=== PATIENT | male | born 1990 ===

== ENCOUNTER 2019-07-21 07:11 | Day surgery (SDC) | payer OTHER ==
[2019-07-21] VITALS (13 sets, daily range): BP systolic 114–170; BP diastolic 74–103
[~2019-07-21] VITALS: Ht 172.7 cm; Wt 90.7 kg
--- NOTE | 2019-07-21 07:05 | Pre-Procedure Note/Attestation ---
Pre-Procedure Note/Attestation Complete Prior to Procedure Planned Procedure: right Procedure Narrative: rt knee scope, acl reconstruction, lateral meniscectomy Indications for Procedure Pre-Operative Diagnosis: rt knee acl tear lateral meniscus tear Attestation I attest that I discussed the nature of the procedure; its benefits; risks and complications; and alternatives (and the risks and benefits of such alternatives ), prior to the procedure, with the patient (or the patient's legal associate financial representative). I attest that, if there was a reasonable possibility of needing a blood transfusion, the patient (or the patient's legal associate financial representative) was given the [facility] standardized written summary, pursuant to the Parvez [place] Blood Safety Act ([place] Health and Safety Code # 1645, as amended). I attest that I re-evaluated the patient just prior to the surgery and that there has been no change in the patient's H&P, except as documented below: none Alexis Ohara MD Jul 21, 2019 07:05
[~2019-07-21 07:11] MED LIST: ceFAZolin 1gm IVPB IVPB ONE; celeBREX 200mg Cap **SURGERY PATIENTS ONLY ORAL ONE; oxyCONTIN 20mg tab ORAL ONE
[2019-07-21] MEDS ORDERED: LR 1000ml 1,000 ML IVLG SCH (07:27)
--- NOTE | 2019-07-21 07:27 | Anethesia Preoperative Eval ---
Anesthesia Pre-op PMH/ROS General Date of Evaluation: Jul 21, 2019 Anesthesiologist: Naresh ASA Score: ASA 1 Mallampati Score Class I : Soft palate, uvula, fauces, pillars visible Class II: Soft palate, uvula, fauces visible Class III: Soft palate, base of uvula visible Class IV: Only hard plate visible Mallampati Classification: Class I Surgeon: Shaq Diagnosis: right acl tear Surgical Procedure: right knee arthroscopy with acl repair Anesthesia History: none Family History: no anesthesia problems Allergies: Coded Allergies: No Known Allergies (Unverified , 07/20/19) Medications: see eMAR Patient NPO?: Yes NPO Date: Jul 20, 2019 NPO Time: 22:00 Past Medical History Cardiovascular: Denies: HTN, CAD, DE, valve dz, arrhythmia, other Pulmonary: Denies: asthma, COPD, GRAYSON, other Gastrointestinal/Genitourinary: Denies: GERD, CRI, ESRD, other Neurologic/Psychiatric: Denies: dementia, CVA, depression/anxiety, TIA, other Endocrine: Denies: DM, hypothyroidism, steroids, other HEENT: Denies: cataract (L), cataract (R), glaucoma, QUINAULT (L), QUINAULT (R), other Hematology/Immune: Denies: anemia, DVT, bleeding disorder, other Musculoskeletal/Integumentary: Denies: OA, RA, DJD, DDD, edema, other PSxH Narrative: denies Anesthesia Pre-op Phys. Exam Physician Exam see chart Constitutional: NAD Cardiovascular: RRR Respiratory: CTA Airway Exam Mallampati Score: Class I MO: full ROM: full Teeth: intact Anesthesia Pre-op A/P Labs see chart Risk Assessment & Plan Assessment: ASA I Plan: GA with adductor nerve block Status Change Before Surgery: No Pre-Antibiotics Drug: Ancef 1g Given Within 1 Hr of Incision: Yes Lashae Navas MD Jul 21, 2019 07:27
[2019-07-21] MEDS ORDERED: EPINEPHrine 1mg/1ml Amp ONE (07:28)
[2019-07-21] MEDS ORDERED: Lidocaine 1% 10mg/ml/Epi 0.005mg/ml 30ml vial INJ ONE (07:29)
[2019-07-21] MEDS ORDERED: Bupivacaine w/Epi 0.5% 30ml Vial INJ ONE (07:29)
[2019-07-21] MEDS ORDERED: Bacitracin 50000 Units Vial ONE (07:30)
[2019-07-21] MEDS ORDERED: fentaNYL 100 mcg/2 mL IV PRN (07:30)
[2019-07-21] MEDS ORDERED: Midazolam 2mg/2ml Inj IVP PRN (07:30)
[2019-07-21] MEDS ORDERED: Ketorolac 30mg Inj IV PRN (07:30)
[2019-07-21] MEDS ORDERED: DiphenhydrAMINE 50mg/ml Inj IVP PRN (07:30)
[2019-07-21] MEDS ORDERED: Metoclopramide 10mg/2ml Inj IVP PRN (07:30)
[2019-07-21] MEDS ORDERED: LORazepam Inj 2mg/ml 1ml IV PRN (07:30)
[2019-07-21] MEDS ORDERED: oxyCONTIN 20mg tab ORAL ONE (07:52)
[2019-07-21] MEDS ORDERED: celeBREX 200mg Cap **SURGERY PATIENTS ONLY ORAL ONE (07:52)
[2019-07-21] MEDS ORDERED: fentaNYL 100 mcg/2 mL IV ONE (08:12)
[2019-07-21] MEDS ORDERED: Lidocaine 1% MPF 10mg/ml 5ml ONE (08:12)
[2019-07-21] MEDS ORDERED: Midazolam 2mg/2ml Inj ONE (08:12)
[2019-07-21] MEDS ORDERED: Propofol 200mg/20ml IV ONE (08:12)
[2019-07-21] MEDS ORDERED: NS Irrig 1000ml ONE (08:30)
[2019-07-21] MEDS ORDERED: Sterile Water Irrig 1000ml IRRIG ONE (08:30)
[2019-07-21] MEDS ORDERED: LR 1000ml ONE (08:30)
[2019-07-21] MEDS ORDERED: Dexamethasone 4mg/ml vial ONE (08:49)
[2019-07-21] MEDS ORDERED: Ketorolac 30mg Inj ONE (08:50)
[2019-07-21] MEDS ORDERED: NS Irrig 4000ml IRRIG ONE (09:27)
--- NOTE | 2019-07-21 10:14 | Brief Operative Note ---
Immediate Post Operative Note Operative Note Chief Complaint: rt knee pain Pre-op Diagnosis: rt knee acl tear Procedure: rt knee scope, acl reconstruction Post-op Diagnosis: same as pre-op Findings: consistent w/pre-op dx studies Surgeon: md mindy Classified Advertising Clerk: bruno medrano Anesthesiologist: md joon Anesthesia: general Specimen: none Complications: none Condition: stable Fluids: ns Estimated Blood Loss: minimal Drains: none Implant(s) used?: Yes - biomet Jemima Medrano Jul 21, 2019 10:14
[2019-07-21] MEDS ORDERED: HYDROmorphone 1mg/ml Carpuject SUBQ PRN (10:15)
[2019-07-21] MEDS ORDERED: Tylenol #3 tab (300mg/30mg) ORAL PRN (10:15)
[2019-07-21] MEDS ORDERED: HYDROcodone/Acetamin 5/325 tab ORAL PRN (10:15)
--- NOTE | 2019-07-21 10:17 | 48 Hour Post Anesthesia Eval ---
Post Anesthesia Evaluation Procedure: right knee arthrocopy with acl repair Date of Evaluation: Jul 21, 2019 Airway: patent Nausea: No Vomiting: No Hydration Status: adequate Cardiopulmonary Status: at baseline Mental Status/LOC: patient returned to baseline Post-Anesthesia Complications: 0 Follow-up care needed: ready to discharge Lashae Navas MD Jul 21, 2019 10:17
--- NOTE | 2019-07-21 10:17 | Immediate Post-Op Evaluation ---
Immediate Post-Op Evalulation Immediate Post-Op Evalulation Procedure: right knee arthrocopy with acl repair Date of Evaluation: Jul 21, 2019 Time of Evaluation: 10:18 IV Fluids: 600 Blood Products: 0 Estimated Blood Loss: min Urinary Output: 0 Blood Pressure Systolic: 156 Blood Pressure Diastolic: 81 Pulse Rate: 78 Respiratory Rate: 16 O2 Sat by Pulse Oximetry: 100 Temperature (Fahrenheit): 99.4 Pain Score (1-10): 0 Nausea: No Vomiting: No Complications 0 Patient Status: awake, reacts, patent, none Hydration Status: adequate Drug: Ancef 1g Given Within 1 Hr of Incision: Yes Lashae Navas MD Jul 21, 2019 10:17
[2019-07-21] MEDS: Hydromorphone 0.5mg/0.5ml inj IVP PRN ×2 (11:01→11:17)
[2019-07-21] MEDS ORDERED: D5 1/2NS 1,000 ML IV SCH (13:00)
--- NOTE | 2019-07-21 15:15 | Operative Note - Dictated ---
DATE OF OPERATION: 07/21/2019 PREOPERATIVE DIAGNOSES: 1. Right knee complete anterior cruciate ligament tear. 2. Right knee posterolateral meniscus tear. POSTOPERATIVE DIAGNOSES: 1. Right knee, no evidence of lateral meniscus tear. 2. Right knee complete anterior cruciate ligament tear with attachment onto the posterior cruciate ligament with incompetence anterior cruciate ligament. PROCEDURE: 1. Right knee arthroscopy and extensive intra-articular shaving. 2. Right knee ACL reconstruction with tibialis anterior allograft size 10 millimeter graft with ToggleLoc femoral fixation and AperFix tibial fixation. SURGEON: Alexis Ohara M.D. GOLF CART REPAIRER: Jemima Fonseca PA-C. Senior Reactor Operator was present during the actual operative portion of the case and was important and essential part of the operation. During the operation, the produce assistant held and operated the arthroscopic camera for visualization, assisted by manipulating the leg to help with visualization, and helped with essential parts of the repair process as necessary such as operating surgical instruments under surgeon supervision, suture management, and wound closures. ANESTHESIOLOGIST: Dr. Lashae Infante. ANESTHESIA: General LMA anesthesia combined with regional nerve block for postoperative pain management. ESTIMATED BLOOD LOSS: Less than 20 mL. TOURNIQUET TIME: 55 minutes. COMPLICATIONS: None. SURGICAL INDICATION: The patient is a 28-year-old male, who sustained the above injury to his knee. The patient was treated non-operative initially, but this did not alleviate the patients symptoms. Therefore, after discussing all non-surgical and surgical options, and discussing all foreseeable risk and benefits of surgery, the patient opted for surgical treatment as described above. PATIENT POSITIONING: The patient was brought to the operating room table and placed supine. All pressure points were well padded. General anesthesia was induced and a well-padded tourniquet was placed on the thigh. The lateral post was placed and positioned to allow for opening of the medial compartment of the knee without placing pressure over the fibular head. The patients entire leg was prepped and draped in the usual sterile fashion. Time-out was performed and preop antibiotics was given and after exsanguinating the lower extremity, the tourniquet was inflated to 275 mmHg. EXAMINATION OF THE KNEE UNDER ANESTHESIA: Before prepping and draping the knee and while the patient was relaxed under general anesthesia, the knee was examined for ROM, and anterior and posterior, medial and lateral, posterolateral, and posteromedial instability. Pivot shift testing was performed. There was no loss of motion although there was marked instability with anterior drawer testing and positive pivot shift testing. PORTAL PLACEMENT: The lateral portal was placed with the knee flexed to 90 degrees at the level of inferior border of the patella in line with the lateral border of the patella. A cm skin incision was made with an eleven blade, and using a blunt obturator, the capsule was gently penetrated. Sterile saline solution was then infused inside the knee with the aid of a pump set at 35 mm mercury pressure. Under direct visualization, placement of the medial portal was preliminary judged using a spinal needle, and it was subsequently established using the same technique as the lateral portal. Care was given not to injure the cutaneous branches of the medial saphenous nerve or the subcutaneous veins. DIAGNOSTIC ARTHROSCOPY: The suprapatellar patellar pouch was visualized. There was no evidence of scar tissue or loose fragments. The medial and lateral patellar facets and trochlear groove articular cartilage was visualized. These structures were intact and were devoid of any articular cartilage damage. The medial plica shelf and the corresponding medial femoral condyle articular cartilage were visualized. There was no significantly thickening of the medial plica shelf and there were no kissing? lesion over the medial femoral condyle. The lateral gutter and the posterolateral corner of the knee were visualized. There were no loose bodies, and the popliteus tendon and other structures of the posterolateral corner of the knee were intact intra-articularly. At this point, the knee was placed in the figure of four position and the lateral compartment was entered. The lateral femoral condyle, lateral tibial plateau, and the anterior, body, and the posterior horn of the lateral meniscus were visualized and probed. The articular surfaces were intact and devoid of articular cartilage damage. The lateral meniscus was completely intact both on its undersurface and on the top. The knee was then placed at 90 degree and the ACL and PCL were visualized and probed. There was a complete ACL tear with attachment of some of the fibers on to the PCL. The probing of the ACL revealed that this was completely loose. The PCL was completely intact on visualization and probing and it had excellent tension. The medial compartment was then entered and the medial femoral condyle, medial tibial plateau, and the anterior, body, and the posterior horn of the medial meniscus were visualized and probed. The articular surfaces were intact and devoid of articular cartilage damage. The medial meniscus was completely intact both on its undersurface and on the top. The medial gutter was visualized. There was no evidence of defect or loose fragments. The scope was then brought back to the patella femoral compartment. OPERATIVE ARTHROSCOPY: At this point, all loose debris and fragments were removed with the use of suction motorized shaver. Specific attention was given to assure all visible loose fragments were irrigated out of the knee joint with pump inflow and cannula outflow system. For allograft preparation, pursuant to preoperative discussion with the patient, an allograft was used for ACL reconstruction. A 28 cm medium sized non-irradiated allograft was obtained from the tissue bank. The graft was defrosted in warm saline solution in its plastic wrapping. The graft was then cultured and subsequently placed in a triple antibiotic solution prior to handling. The graft was then trimmed to total length of 220 mm. The two ends of the graft were secured with #2 FiberWire sutures placed using modified Krackow technique up to 25 mm proximal to each end. All slack was removed from the stitched portion and the graft was placed on a graft tensioner wrapped in antibiotic soaked sponges in a safe place on the back table. For ACL reconstruction, attention was then given to ACL reconstruction. The ACL remnant off of the tibial foot print and femoral notch was completely resected using a combination of suctioned electrocautery and afshin. Care was given not to damage the transverse inter-meniscal ligament. Minimal notchplasty was performed using an aggressive 5.5 mm shaver just to be able to gain access and view the ACL attachment in the posterior aspect of the notch. The interns ridge was identified and debrided. The posterior aspect of the notch was then identified. This area was first debrided using a shaver and later cleaned off using a combination of curved curettes and afshin. This area was probed to assure that the most posterior aspect of the notch is identified and there is no more bone posteriorly. Care was given not to damage the neurovascular bundle in the posterior compartment of the leg. For allograft reconstruction, at this point the scope was removed and using a #15 blade, a 2 cm incision was made on the medial face of the tibia approximately at the level of the tibial tubercle. Using a tibial tunnel guide, the position of entry of the guide wire into the knee joint was approximated. The guide was placed on the foot print of previous ACL stump at the medial half of the intertubercular groove to allow the pin to enter the knee joint in the tibial anatomical footprint of the ACL. A guide wire was first placed and the tibial hole was then drilled using a drill. The tibial tunnel was then dilated up to 2 mm using standard dilators at millimeter increments up to the final size of 10 mm. Care was given not to fracture any portion of the tunnel during this process. Once this was completed, a 10 mm Femoral tunnel was drilled on the anatomical femoral attachment of the ACL, slightly laterally and inferiorly to the over the top position to allow for rotational stability. The femoral tunnel was drilled up to 35 mm deep. At this point, a Biomet ToggleLoc device was used for femoral fixation. A guide wire was passed thru the femoral tunnel and exited the lateral cortex of the femur and out of the soft tissue and grasp using a cocker. The 3.5 mm drill was used to drill the cortex and while the graft was loaded on the Toggle lock devise, it was then pulled up through the tibial tunnel into the joint and then into the femoral tunnel smoothly using the described technique and the metallic devise was flipped to allow security of the graft. The security of the graft was checked by pulling on the graft multiple times thru the femoral tunnel and assuring that the graft is firmly fixed. The graft was then tensioned by apply approximately 20 lb of traction and and cycling the knee 20 times through full flexion and extension to take out all of the looseness in the graft. At this point, the graft was stabilized in the tibial tunnel with a 10 mm AperFix implant placed anterior to graft into the tibial tunnel. This was performed while keeping tension on the graft and applying a gentle posterior drawer to the knee. After completion of the fixation, anterior drawer and Lawrence testing were negative and pivot shift was not present. The scope was then placed back into the knee to visualize the graft. There was excellent position of the graft, and upon probing, the graft appeared to have excellent tension. Anterior drawer testing with scope in the knee revealed excellent stability. The knee was brought up to hyperextension and there was no evidence of graft impingement on the notch. CONDITION AT DISCHARGE FROM OPERATING ROOM: The knee was irrigated with copious amount of normal saline at the end of the procedure. The scope was removed and the water was drained. The skin edges were re-approximated and sterile dressing was applied. All lap count and instrument counts were correct. The patient tolerated the procedure well without complications and was taken to the recovery room in stable conditions. Alexis Ohara M.D. DR: ALIX JOB#: [id number] CC:
== END 2019-07-21 13:15 | disposition home or self-care (01) ==
LOC: SUR 07:11
DX: S83.511A Sprain of anterior cruciate ligament of right knee, initial encounter (principal); X58.XXXA Exposure to other specified factors, initial encounter; Y92.9 Unspecified place or not applicable
CPT/HCPCS: 29888; J0171; J0360; J0690; J1100; J1170; J1885; J2250; J2405; J2704; J3010; 94003; 94150